=== PATIENT | male | born 1980 | race Caucasian/White ===

== ENCOUNTER 2021-09-30 15:09 | Outpatient (CLI) | payer BC, SELFPAY ==
--- NOTE | 2021-09-30 15:14 | US_ITS ---
STUDY: SCROTUM ULTRASOUND REASON FOR EXAM: Male, 41 years old. PAIN R TESTICLE x 1 day TECHNIQUE: Ultrasound evaluation of the scrotum was performed with color Doppler and static martinez-scale imaging. COMPARISON: None. FINDINGS: RIGHT TESTICLE INTRATESTICULAR: There is a normal size of the right testicle. The right testicle measures 4 x 3.7 x 3 cm. There is a homogenous echotexture. There is normal arterial and normal venous vascularity. There is no demonstrated right testicular mass or cyst. EXTRATESTICULAR: The epididymis is normal in size but slightly heterogeneous. The epididymis head measures 1.4 x 1.8 x 1.4 cm. There is increased vascularity of the epididymis. Tiny epididymal cyst measuring 5 mm.. There is no demonstrated hydrocele. There is no demonstrated varicocele. There is no demonstrated extratesticular mass or cyst. LEFT TESTICLE INTRATESTICULAR: There is a normal size of the left testicle. The left testicle measures 4.4 x 3.5 x 2.8 cm. There is a homogenous echotexture. There is normal arterial and normal venous vascularity. There is no demonstrated left testicular mass or cyst. EXTRATESTICULAR: The epididymis is normal in size. The epididymis head measures 1.4 x 0.9 x 1.4 cm. There is normal vascularity of the epididymis. There is no demonstrated epididymal cystic structure. There is no demonstrated hydrocele. There is no demonstrated varicocele. There is no demonstrated extratesticular mass or cyst. US/Testicular with Arterial Flow IMPRESSION: No evidence for testicular mass or torsion. Findings suggestive of acute right epididymitis Electronically Signed: Bang Stern MD at 16:35 EST Reading Location ID and State: [address] [place] [address] , Service support ,
== END 2021-09-30 23:59 | disposition short-term general hospital (02) ==
LOC: US 15:13
PROVIDERS: PCP Family Medicine; Referring Provider Nurse Practitioner Family; Visit Provider Nurse Practitioner Family
DX: N50.811 Right testicular pain (principal)
CPT/HCPCS: 76870; 93976